=== PATIENT | female | born 1970 | race Caucasian/White ===

== ENCOUNTER 2020-10-25 07:25 | Day surgery (SDCO) | payer OTHER ==
[~2020-10-25 07:25] MED LIST: BUPRENORPHIN-N1 EACH SL; COZAAR50 MG PO; EFFEXOR XR37.5 MG PO; IBUPROFEN800 M1 PO; KEPPRA100 MG/1 M PO
[2020-10-25 07:41] LABS: HCG (URINE) SCREEN NEGATIVE (NEGATIVE)
[2020-10-25 07:59] LABS: HCT 41.9 % (37.0-47.0); HGB 13.4 g/dl (12.5-16.0); MCH 29.8 pg (25.0-31.0); MCV 93.1 fL (78.0-100.0); MPV 10.2 fL (6.0-9.5); RBC 4.5 M/uL (4.20-5.40); RDW 12.6 % (11.5-14.0); WBC 6.7 K/uL (4.0-10.5)
[2020-10-25 08:34] LABS: ALBUMIN 3.4 g/dL (3.4-5.0); BILIRUBIN - TOTAL 0.2 mg/dL (0.2-1.0); BUN/CREAT RATIO (CALC) 15.2 RATIO; CREATININE 0.66 mg/dL (0.51-0.95); GLOBULIN (CALCULATION) 3.4 g/dL; POTASSIUM 3.8 mmol/L (3.5-5.1); TOTAL PROTEIN 6.8 g/dL (6.4-8.2)
[2020-10-25] MEDS ORDERED: COLACE100 MG PO (10:55)
[2020-10-25] MEDS ORDERED: IBUPROFEN800 M1 PO (10:55)
[2020-10-25] MEDS ORDERED: PERCOCET 5-3251 EACH PO (10:55)
[2020-10-25] MEDS ORDERED: ZOFRAN4 M1 PO (10:55)
== END 2020-10-25 10:52 | disposition home or self-care (01) ==
LOC: FSDC 07:25
PROVIDERS: Anesthesiology; ADMIT Obstetrics & Gynecology
DX: D25.1 Intramural leiomyoma of uterus (principal); D25.2 Subserosal leiomyoma of uterus; N87.9 Dysplasia of cervix uteri, unspecified; N80.0 Endometriosis of uterus; G89.29 Other chronic pain; R10.2 Pelvic and perineal pain; F17.210 Nicotine dependence, cigarettes, uncomplicated; I10 Essential (primary) hypertension; F32.9 Major depressive disorder, single episode, unspecified; G40.909 Epilepsy, unspecified, not intractable, without status epilepticus; F41.9 Anxiety disorder, unspecified; R73.03 Prediabetes; E66.3 Overweight; Z68.28 Body mass index [BMI] 28.0-28.9, adult; Z79.899 Other long term (current) drug therapy; Z98.51 Tubal ligation status
CPT/HCPCS: 36415; 71045; 80053; 84703; 86850; 86900; 86901; G0378; J0690; J1170; J1885; J2250; J2405; J2704; J2710; J3010

== ENCOUNTER → 2022-05-31 | Day surgery (SDC) | payer OTHER ==
[~2022-05-31] VITALS: Ht 162.6 cm; Wt 60.3 kg
[~2022-05-31] MED LIST changes: +COLACE100 MG PO; +PERCOCET 5-3251 EACH PO; +PROTONIX 40MG T40 MG PO; +SUBOXONE 8 MG-1 EACH PO; +ZOFRAN4 M1 PO
== END | disposition home or self-care (01) ==
LOC: FAS 10:25
DX: R19.4 Change in bowel habit (principal); R97.0 Elevated carcinoembryonic antigen [CEA]; K29.60 Other gastritis without bleeding; K63.5 Polyp of colon; K25.9 Gastric ulcer, unspecified as acute or chronic, without hemorrhage or perforation; I10 Essential (primary) hypertension; Z72.0 Tobacco use
CPT/HCPCS: J2250; J2704; J7120